=== PATIENT | female | born 1985 | race Caucasian/White ===

== ENCOUNTER 2022-09-25 18:24 | Emergency (ER) | payer BC, OTHER ==
[2022-09-25] MEDS ORDERED: Ketorolac Tromethamine 30 MG/ML VIAL ONE (20:16)
== END 2022-09-25 20:46 | disposition home or self-care (01) ==
LOC: CSHERS 18:24
DX: M25.562 Pain in left knee (principal)
CPT/HCPCS: 96372; J1885